=== PATIENT | female | born 1925 | race African-American/Black ===

== ENCOUNTER 2016-11-05 10:46 | Inpatient (IN) | payer MEDICARE ==
[2016-11-04 18:00] LABS: INFLUENZA A SCREEN NEGATIVE (NEGATIVE); INFLUENZA B SCREEN NEGATIVE (NEGATIVE)
--- NOTE | ~2016-11-05 | DS ---
Discharge Summary [facility] [address] [facility] [place]. [address] NAME: DIANNA LANTIGUA : [birth year] STATUS : DIS IN PAT#: [id number] AGE: 89 ADM/REG DATE : 11/05/16 MR#: [id number] REPORT SERV DATE: 11/16/16 DICTATED BY: SANJANA FRANCO DATE: 11/15/16 REPORT STATUS : Draft TRANSCRIBED BY: MARU DATE: 11/15/16 Data Collection from hospitalization DISCHARGE DIAGNOSES: 1. Presumed syncopal episode - found on floor unresponsive. 2. Fall. 3. Generalized weakness. 4. Hypertension. 5. Diabetes mellitus. 6. Vascular dementia. 7. History of cerebrovascular disease. 8. Paroxysmal atrial fibrillation. 9. Coronary artery disease. 10.Peripheral vascular disease. 11.Renal artery stenosis. 12.Stage III chronic kidney disease. 13.Neuropathy. 14.Osteopenia. 15.Gastroesophageal reflux disease. 16.Osteoarthritis. 17.Glaucoma. CONSULTATIONS: None. PROCEDURES PERFORMED: Venous Doppler ultrasound of the bilateral lower extremities, 11/06/2016. MEDICATIONS: Tylenol caplet 1000 mg three times a day, Norvasc 10 mg daily, Eliquis 5 mg twice a day, Lipitor 20 mg at bedtime, brimonidine 1 drop twice a day, Caltrate plus D 600 mg twice a day, Voltaren 2 g topically twice a day, Aricept 10 mg at bedtime, vitamin D 50,000 units every 30 days, Lasix 60 mg daily, Neurontin 300 mg at bedtime, Robitussin 200 mg every 8 hours as needed, Xalatan one drop at bedtime, Cozaar 100 mg daily, Glucophage 500 mg daily, Tamiflu 75 mg daily for seven days as instructed, Protonix 20 mg daily, Klor-Con 20 mEq twice a day, and Senokot two tablets at bedtime. CONDITION AT DISCHARGE: Stable. DISPOSITION: The patient was discharged home on a 2000 calorie low cholesterol, diabetic diet with no concentrated carbohydrates, and activities as instructed. She will follow up with me as needed. HOSPITAL COURSE: This is an 89-year-old female who had been in her usual state of health until late in the afternoon on the day prior to this admission when she was seen in the clinic for cough. She was afebrile. Her vital signs were stable. She tested negative for influenza. She was started on Tamiflu prophylactic dose because of the high numbers of influenza cases we had in our clinic. According to her daughter who was at her bedside, she reports that the patient's grandson helped her to the bathroom around 2 a.m., and then the next time he saw her was about 6 a.m., and she was on the floor. Her daughter also stated Discharge Summary [address] [place]. [address] NAME: DIANNA LANTIGUA : [birth year] STATUS : DIS IN PAT#: [id number] AGE: 89 ADM/REG DATE : 11/05/16 MR#: [id number] REPORT SERV DATE: 11/16/16 DICTATED BY: SANJANA FRANCO DATE: 11/15/16 REPORT STATUS : Draft TRANSCRIBED BY: MARU DATE: 11/15/16 that her son reported she had an episode earlier in the afternoon of panting and seemed to be short of breath, but that eventually resolved, and when she was found on the ground there was a small amount of vomitus on her clothes. She was admitted to the hospital at this time for further evaluation and treatment. Upon admission, her INR level was 1.3. EKG revealed atrial fibrillation at 83 beats per minute with left axis deviation, incomplete left bundle-branch block, and nonspecific ST-T changes. Right humeral x-ray showed no acute bony abnormality. It was suspected that her syncopal episode may have been related to an arrhythmia. There was no indication of her having a serious infection. She could also have a vasovagal event. Her sedating medications were reduced, so we will check another troponin the following morning. We were going to obtain a duplex Doppler of the bilateral lower extremities even though there was no swelling. Blood pressure was a bit elevated. Her home blood pressure medications were going to be resumed. IV fluids were continued. Eliquis was continued. Her diabetes is well controlled. She is on a small dose of metformin. Gabapentin was held for now. Percocet was going to be continued at a reduced dose. Ativan was held. Pantoprazole was continued as well as Aricept, Xalatan, and brimonidine. Orthostatic blood pressures were checked. The following day, venous Doppler ultrasound of the bilateral lower extremities was performed. There was no evidence of deep venous thrombosis. She had a good appetite. She had no new complaints. She had no significant arrhythmia. Oral Eliquis was continued. On the , she had no new complaints. She had no chest pain or dizziness. Heart monitor had revealed first-degree AV block as well as paroxysmal atrial fibrillation - rate controlled. She was on Eliquis, had no signs of delirium. Discharge planning was performed. On 11/08/2016, she felt well. She denied chest pain, shortness of breath, or dizziness. Discharge instructions were given. Due to her improved and stable condition, she was discharged home with the above-stated instructions. Information collected by: Marilou Kwok I submit the above information as my discharge summary. KAREN/MARU Sanjana Franco M.D. / [id number] CC: Sanjana Franco M.D.
--- NOTE | ~2016-11-05 | HP ---
History And Physical [place] [id number] [facility] [place]. [address] NAME: DIANNA GARCIA : [birth year] STATUS : ADM IN [facility]#: [id number] AGE: 89 ADM/REG DATE : 11/05/16 MR#: [id number] REPORT SERV DATE: 11/06/16 DICTATED BY: SANJANA FRANCO DATE: 11/05/16 REPORT STATUS : Draft TRANSCRIBED BY: MODL DATE: 11/05/16 DATE OF ADMISSION: 11/05/2016 CHIEF COMPLAINT: Found unresponsive on the floor in her home. HISTORY OF PRESENT ILLNESS: Mrs. Garcia is an 89-year-old female, who was in her usual state of health until late yesterday afternoon when she was seen in the clinic for a cough. She was afebrile, vital signs were stable at that time. She tested negative for influenza. She was started on Tamiflu prophylactic dose because of the high numbers of influenza cases we have had in our clinic. Per her daughter, Jackie Jara who is presently at her bedside, she reports that the patient's grandson helped her to the bathroom at about 2 o'clock in the morning and then the next time he saw her was at about 6:00 a.m., and she was on the floor. Her daughter also told me that the son reported she had an episode earlier in the afternoon of panting and seemed short of breath but that eventually resolved and when she was found on the ground, there was a small amount of vomitus on her clothes. ALLERGIES: NO KNOWN DRUG ALLERGIES. MEDICATIONS: Include Tamiflu 75 mg once daily, Xalatan one drop in both eyes at bedtime, lorazepam one tab at bedtime, Lipitor 20 at bedtime, Eliquis five twice daily, Percocet 5/325 three times a day, albuterol four times a day as needed, Tylenol 500 two tabs twice daily, Calcarb 600/400 twice daily vitamin D, Claritin 10 daily, metformin 500 mg daily, Aricept 10 mg at bedtime, losartan 100 mg daily, brimonidine 0.15% one drop twice daily, Flector patch q.12 to the left shoulder, furosemide 60 mg daily, potassium 20 mEq twice daily, senna two tabs at bedtime, gabapentin 600 mg at bedtime, glucose gel, baclofen 5 mg at bedtime as needed, pantoprazole 20 mg daily, Fosamax 30 mg q. week, nitroglycerin as needed, Norvasc 10 mg daily, and MiraLAX 17 g daily. 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 SOCIAL HISTORY: She lives in her own home with her grandson. She is a nonsmoker, and no alcohol. She is a DNR, limited additional interventions. FAMILY HISTORY: Significant for diabetes and chronic kidney disease. REVIEW OF SYSTEMS: No chest pain. No nausea, vomiting, or diarrhea. No abdominal pain. No burning on urination. History And Physical [address] [address] NAME: DIANNA GARCIA : [birth year] STATUS : ADM IN [facility]#: [id number] AGE: 89 ADM/REG DATE : 11/05/16 MR#: [id number] REPORT SERV DATE: 11/06/16 DICTATED BY: SANJANA FRANCO DATE: 11/05/16 REPORT STATUS : Draft TRANSCRIBED BY: MARU DATE: 11/05/16 PHYSICAL EXAMINATION: VITAL SIGNS: Temperature 99.6, blood pressure is 165/69, respiratory rate is 16, pulse is 79, O2 saturation is 95% on air. GENERAL: She is an elderly woman in no apparent distress. HEENT: Normocephalic, atraumatic. Conjunctiva not injected. No scleral icterus. Extra muscles intact. Pupils are reactive. There are no bite calero on her tongue. NECK: Supple. CARDIAC: Irregularly irregular with a 2/6 systolic murmur. LUNGS: Clear. ABDOMEN: Positive bowel sounds. Soft, nondistended, nontender. EXTREMITIES: No edema. NEURO: She is alert. She is fluent, she knew who I was. She knew she was in the hospital. There is no facial droop. There are no abnormal movements. She has about 4/5 strength in her upper extremities, 4+/5 strength in her bilateral lower extremities. SKIN: No bruising, no pressure ulcers. LABORATORY DATA: White count was 6.4 with no shift, hemoglobin was 12.2, hematocrit was 36.8, platelets 220. PT was 16.3, PTT was 38.9, INR was 1.3. Sodium 142, potassium 3.5, chloride 105, bicarb 24, BUN 14, creatinine 0.87, glucose 150, calcium 9, magnesium 1.9, and troponin was less than 0.02. UA was yellow clear with 100 protein, negative leukocytes, and negative nitrites, moderate blood. Chest x-ray showed mild fullness of the pulmonary vasculature with bibasilar and bi-hilar atelectasis, stable enlargement of cardiac silhouette. Right humeral x-ray showed no acute bony abnormality. EKG showed atrial fibrillation at 83 beats per minute with left axis deviation, incomplete left bundle branch block, and nonspecific ST changes. IMPRESSION AND PLAN: 1. Episode of unresponsiveness, syncopal episode, suspect this is related to an arrhythmia. The last time patient had altered mental status and lethargy, she was found to be in atrial fibrillation. She may have had a tachyarrhythmia, cannot rule out seizure. The patient could have also had a vasovagal event. There was no indication of her having a serious infection, and she is on anticoagulation for her atrial fibrillation. We will check orthostatics, will reduce all her sedating medications, and check another troponin in the a.m. We will also go ahead and order a duplex Doppler of bilateral lower extremity even though there is no swelling. 2. Coronary artery disease or heart failure. No chest pain or shortness of breath currently. Continue furosemide, potassium, Lipitor. We will discontinue her IV fluids since she is alert and hungry. 3. Hypertension. Her blood pressure is a bit elevated right now, but she has not had any medications this morning and that should resolve once she is on medications. 4. Paroxysmal atrial fibrillation. Continue Eliquis. 5. Diabetes with neuropathy. Her diabetes is well controlled. She is on a small dose of metformin. We will hold her gabapentin for now, and we will check her blood glucose. 6. Chronic pain secondary to osteoarthritis. We will continue her Percocet but again at reduced doses. We will do it twice a day as needed. 7. Anxiety that is chronic. We will hold her Ativan for right now. 8. Gastroesophageal reflux disease. Continue pantoprazole. History And Physical [place] [address] [place]. [address] NAME: DIANNA GARCIA : [birth year] STATUS : ADM IN PAT#: [id number] AGE: 89 ADM/REG DATE : 11/05/16 MR#: [id number] REPORT SERV DATE: 11/06/16 DICTATED BY: SANJANA FRANCO DATE: 11/05/16 REPORT STATUS : Draft TRANSCRIBED BY: MODL DATE: 11/05/16 9. Vascular dementia is moderate to severe. She is at risk for delirium. Continue Aricept. 10.Glaucoma. Continue Xalatan and brimonidine. 11.Constipation. Can monitor her bowel movements and continue senna and MiraLAX. The patient is a DNR, [place]. DISPOSITION: Unknown at this time. If she does well overnight, we could probably discharge her tomorrow, but she will definitely be on monitor and will make sure she is not orthostatic and will make sure she has no DVT. LMB/MODL Sanjana Franco M.D. / [id number] CC: Sanjana Franco M.D.
[~2016-11-05 10:46] MED LIST: ACET500CAP PO; ALPHAGAN OPH; AMARYL4 PO; ARICEPT10 PO; ASAB PO; ATV.5 PO; ATV1 PO; AZOPT OPH; BRIMONIDINE0.2 % OPH; CALTRA600D PO; COREG25 PO; COZAAR100 MG PO; DILT-XR120 MG PO; ELIQUIS 5 MG TAB5 MG PO; EYE OPH; FLECTOR1.3 % TOP; FORTAMET500 MG PO; FOSAMAX35 MG PO; FOSAMAX70 MG PO; GLUCPH PO; HALF81 PO; KDUR20 PO; KLOR-CON M2020 MEQ PO; L20 PO; L40 PO; L80 PO; LIOR10 PO; LIPITOR20 PO; MAGOX4 PO; MAXIMUM D3 PO; MEVACOR40 MG PO; MIRALAXPKT PO; MULTIVITAMI1 PO; NEUR300 PO; NEUR600 PO; NORV10 PO; NORV5 PO; P10 PO; PCET PO; PRIN20 PO; PROTONIX20 MG PO; RX EYE DROP; SENTAB PO; T PO; TYLENOL ARTH650 MG PO; ULTRACET PO; XALAT OPH; [UNRECOGNIZED DRUG - REMARK] TOP
[2016-11-05 11:08] LABS: BASOPHILS 0.2 %; BASOPHILS ABSOLUTE 0.01 10/3/uL (0.0-0.16); EOSINOPHILS 0 %; ER CBC TAT 0 Hrs 05 Mins; HEMATOCRIT 36.8 % (36.0-48.0); HEMOGLOBIN 12.2 g/dL (12.0-16.0); IMMATURE GRANULOCYTES 0.3 %; IMMATURE GRANULOCYTES ABSOLUTE 0.02 10/3/uL (0.0-0.11); LYMPHOCYTES 5.9 %; LYMPHOCYTES ABSOLUTE 0.38 10/3/uL (0.67-4.30); MEAN CORPUS HGB CONC 33.2 g/dL (32.0-36.0); MEAN CORPUSCULAR VOLUME 81.4 fL (80-100); MEAN PLATELET VOLUME 9.3 fL (9.2-13.0); MONOCYTES 8.6 %; MONOCYTES ABSOLUTE 0.55 10/3/uL (0.21-1.20); NEUTROPHILS ABSOLUTE 5.47 10/3/uL (2.02-8.40); PLATELET COUNT 220 10/3/uL (150-400); RBC DISTRIBUTION WIDTH 17.6 % (12.0-16.0); RED CELL COUNT 4.52 10/6/uL (4.0-5.6); WHITE BLOOD CELLS 6.4 10/3/uL (4.5-10.5)
[2016-11-05 11:11] LABS: MANUAL DIFF NO %
[2016-11-05 11:18] LABS: INTERNATIONAL NORMAL RATI 1.3 UNITS (-); PARTIAL THROMBO TIME 38.9 SEC (22.5-37.2)
[2016-11-05 11:19] LABS: PROTIME (NOT ORD) 16.3 SEC (12.0-14.5)
[2016-11-05 11:25] LABS: BUN (BLOOD UREA NITROGEN) 14 MG/DL (6-23); CHEST PAIN PROFILE TAT 0 Hrs 22 Mins; CHLORIDE, SERUM 105 MMOL/L (96-112); CO2 (CARBON DIOXIDE) 24 MMOL/L (24-34); CREATININE 0.87 MG/DL (0.55-1.02); GFR AFRICAN AMERICAN 68 ML/MIN (>=60); GFR NON AFRICAN AMERICAN 59 ML/MIN (>=60); GLUCOSE, SERUM 150 MG/DL (60-99); POTASSIUM, SERUM 3.5 MMOL/L (3.5-5.3); SODIUM, SERUM 142 MMOL/L (135-148); TROPONIN I <0.02 NG/ML (<0.05)
[2016-11-05 12:19] LABS: ASCORBIC ACID (UR NOT ORDER) NEG (NEG); BILIRUBIN, URINE NEGATIVE (NEG); ER URINALYSIS TAT 0 Hrs 26 Mins; KETONE, URINE 20 MG/DL (NEG); LEUKOCYTE ESTERASE(NOT OR NEG (NEG); NITRITE (URINE) NEG (NEG); WBC (NOT ORDERED) (RFLEX) 1 (0-5)
[2016-11-05] MEDS ORDERED: ACET500CAP PO (12:47)
[2016-11-05] MEDS ORDERED: CALTRA600D PO (12:48)
[2016-11-05] MEDS ORDERED: ARICEPT10 PO (12:48)
[2016-11-05] MEDS ORDERED: ELIQUIS 5 MG TAB5 MG PO (12:48)
[2016-11-05] MEDS ORDERED: NORV10 PO (12:49)
[2016-11-05] MEDS ORDERED: L20 PO (12:49)
[2016-11-05] MEDS ORDERED: SENTAB PO (12:49)
[2016-11-05] MEDS ORDERED: NEUR600 PO (12:49)
[2016-11-05] MEDS ORDERED: VITD PO (12:50)
[2016-11-05] MEDS ORDERED: LIPITOR20 PO (12:50)
[2016-11-05] MEDS ORDERED: CLARIT10 PO (12:50)
[2016-11-05] MEDS ORDERED: COZAAR100 MG PO (12:51)
[2016-11-05] MEDS ORDERED: GLUCPH PO (12:51)
[2016-11-05] MEDS ORDERED: LIOR10 PO (12:51)
[2016-11-05] MEDS ORDERED: ATV1 PO (12:52)
[2016-11-05] MEDS ORDERED: KLOR-CON M2020 MEQ PO (12:52)
[2016-11-05] MEDS ORDERED: PROTONIX20 MG PO (12:52)
[2016-11-06 06:34] LABS: HEMATOCRIT 34.4 % (36.0-48.0); HEMOGLOBIN 11.1 g/dL (12.0-16.0); MEAN CORPUS HGB CONC 32.3 g/dL (32.0-36.0); MEAN CORPUSCULAR HEMOGLOB 26.1 pg (26.0-34.0); MEAN CORPUSCULAR VOLUME 80.8 fL (80-100); MEAN PLATELET VOLUME 9.9 fL (9.2-13.0); PLATELET COUNT 203 10/3/uL (150-400); RBC DISTRIBUTION WIDTH 18.2 % (12.0-16.0); RED CELL COUNT 4.26 10/6/uL (4.0-5.6)
[2016-11-06 06:36] LABS: MANUAL DIFF YES %
[2016-11-06 06:51] LABS: BUN (BLOOD UREA NITROGEN) 12 MG/DL (6-23); CALCIUM, SERUM 8.8 MG/DL (8.5-10.4); CHLORIDE, SERUM 108 MMOL/L (96-112); CO2 (CARBON DIOXIDE) 24 MMOL/L (24-34); CREATININE 0.86 MG/DL (0.55-1.02); GFR AFRICAN AMERICAN 69 ML/MIN (>=60); GFR NON AFRICAN AMERICAN 60 ML/MIN (>=60); SODIUM, SERUM 141 MMOL/L (135-148); TROPONIN I 0.04 NG/ML (<0.05)
[2016-11-06 06:55] LABS: GLUCOSE, SERUM 105 MG/DL (60-99); POTASSIUM, SERUM 3.5 MMOL/L (3.5-5.3)
[2016-11-06 07:02] LABS: ANISOCYTOSIS 1+ (5-10/OIF) (0-5/OIF); BAND NEUTROPHILS 1 %; HYPOCHROMIA 1+ (3-10/OIF) (0-2/OIF); LYMPHOCYTES 19 %; LYMPHOCYTES ABSOLUTE (CALC) 0.95 10/3/uL (0.67-4.30); MONOCYTES 10 %; NEUTROPHILS ABSOLUTE (CALC) 3.55 10/3/uL (2.02-8.40); PLATELET ESTIMATE ADQ (ADEQUATE); SEGMENTED NEUTROPHIL (0) 70 %; TOTAL NUCLEATED CELLS 100
[2016-11-07 04:41] LABS: BUN (BLOOD UREA NITROGEN) 15 MG/DL (6-23); CALCIUM, SERUM 8.6 MG/DL (8.5-10.4); CHLORIDE, SERUM 107 MMOL/L (96-112); CO2 (CARBON DIOXIDE) 27 MMOL/L (24-34); CREATININE 0.93 MG/DL (0.55-1.02); GFR AFRICAN AMERICAN 63 ML/MIN (>=60); GFR NON AFRICAN AMERICAN 54 ML/MIN (>=60); GLUCOSE, SERUM 89 MG/DL (60-99); POTASSIUM, SERUM 3.6 MMOL/L (3.5-5.3); SODIUM, SERUM 143 MMOL/L (135-148)
[2016-11-08] MEDS ORDERED: BRIMONIDINE0.2 % OPH (11:08)
[2016-11-08] MEDS ORDERED: VOLTAREN1 % TOP (11:09)
[2016-11-08] MEDS ORDERED: GGEXPUD PO (11:10)
[2016-11-08] MEDS ORDERED: TAMIFLU PO (11:11)
[2016-11-08] MEDS ORDERED: XALAT OPH (11:11)
== END 2016-11-08 14:38 | disposition home or self-care (01) | DRG 312 ==
LOC: ER 10:46 → 4SO 13:53
PROVIDERS: Emergency Medicine; Family Medicine; Internal Medicine Geriatric Medicine; Nurse Practitioner
DX: R55 Syncope and collapse (principal); E11.22 Type 2 diabetes mellitus with diabetic chronic kidney disease; E11.42 Type 2 diabetes mellitus with diabetic polyneuropathy; M19.90 Unspecified osteoarthritis, unspecified site; K21.9 Gastro-esophageal reflux disease without esophagitis; G89.29 Other chronic pain; F41.9 Anxiety disorder, unspecified; H40.9 Unspecified glaucoma; Z79.01 Long term (current) use of anticoagulants; I69.319 Unspecified symptoms and signs involving cognitive functions following cerebral infarction; F01.50 Vascular dementia, unspecified severity, without behavioral disturbance, psychotic disturbance, mood disturbance, and anxiety; K59.00 Constipation, unspecified; Z66 Do not resuscitate; I12.9 Hypertensive chronic kidney disease with stage 1 through stage 4 chronic kidney disease, or unspecified chronic kidney disease; N18.3 Chronic kidney disease, stage 3 (moderate); N18.9 Chronic kidney disease, unspecified; I25.10 Atherosclerotic heart disease of native coronary artery without angina pectoris; I44.0 Atrioventricular block, first degree; R53.1 Weakness
CPT/HCPCS: 71010; 73060-RT; 80048; 81001; 82962; 83735; 84484; 85025; 85610; 85730; 87804; 93005; 93970; 99285; A9270-GY